=== PATIENT | male | born 1990 | race Caucasian/White ===

== ENCOUNTER 2021-03-15 15:56 | Inpatient (IN) | payer SELFPAY ==
[2021-03-15 16:08] VITALS: BP 138/84; PULSE 117; RESP 18; TEMP 36.7; O2SAT 97; BMI 25.3
[2021-03-15 17:15] LABS: Basophils # 0.1 10^3/uL (0.0-0.1); Basophils % 0.9 %; Eosinophils # 0.2 10^3/uL (0.0-0.8); Eosinophils % 1.6 %; Hematocrit 54.2 % (42.0-52.0); Hemoglobin 18.4 g/dL (11.7-16.6); Lymphocytes # 3.1 10^3/uL (0.8-4.8); Lymphocytes % 33.6 %; Mean Corpuscular HGB Conc 33.9 g/dL (30.0-36.0); Mean Corpuscular Volume 97.3 fL (80-94); Mean Platelet Volume 9.4 fL (7.4-10.4); Monocytes # 0.8 10^3/uL (0.2-0.9); Monocytes % 8.9 %; Neutrophils # 5.05 10^3/uL (1.8-7.7); Neutrophils % 54.9 %; Nucleated Red Blood Cells % 0 %; Platelet Count 257 10^3/cmm (130-400); Red Blood Count 5.57 10^6/uL (4.1-5.3); Red Cell Distribution Width 11.9 % (12.1-15.1); White Blood Count 9.2 10^3/uL (4.0-10.0)
[2021-03-15 17:41] LABS: Add Urine Microscopic? NO; Charge for UA Resulting for Rev
[2021-03-15 17:42] LABS: Alanine Aminotransferase 23 U/L (0-41); Albumin Level 4.9 g/dL (3.5-5.2); Alkaline Phosphatase 41 IU/L (40-130); Aspartate Amino Transferase 30 U/L (0-40); Blood Urea Nitrogen 7 mg/dL (6-20); Carbon Dioxide 22 mmol/L (22-29); Chloride 106 mmol/L (98-107); Creatine Phosphokinase 177 U/L (39-308); Creatinine Clr Calc Pharmacy 152.0806; Globulin 2.8 g/dL (1.3-4.6); Glomerular Filtration Rate 133.3 mL/min (90-130); Glucose 76 mg/dL (65-115); Osmolality Calculated 295 mOsm/kg (285-295); Sodium 144 mmol/L (136-145); Thyroid Stimulating Hormone 1.28 uIU/mL (0.27-4.20); Total Bilirubin 0.5 mg/dL (0.15-1.2); Total Protein 7.7 g/dL (6.6-8.7)
[2021-03-15 17:46] VITALS: BP 128/84; PULSE 117; RESP 18; O2SAT 96
[2021-03-15 17:46] LABS: Bilirubin Urine Neg (Negative); Blood Urine Neg (Negative); Glucose Urine UA Norm (Normal); Ketones Urine 1+ (Negative); Leukocyte Esterase Urine Negative (Negative); Nitrate Urine Negative (Negative); Protein Urine Neg (Negative); Specific Gravity, Urine 1.015 (1.005-1.030); Urine Appearance Clear (CLEAR); Urine Color Straw (Yellow); Urobilinogen Urine Norm (Negative); pH Urine 5 (5-7)
[2021-03-15 17:49] LABS: Acetaminophen < 5.0 ug/mL (10-30); Salicylate < 0.3 mg/dL (3-10)
[2021-03-15 17:50] LABS: Alcohol Level 304 mg/dL (0-10)
[2021-03-15 17:54] LABS: Amphetamines Screen Urine Negative (Negative); Barbiturates Screen Urine Negative (Negative); Benzodiazepines Screen Urine Negative (Negative); Cocaine Screen Urine Negative (Negative); Opiate Screen Urine Negative (Negative); PCP Screen Urine Negative (Negative); THC Screen Urine Positive (Negative)
--- NOTE | 2021-03-15 18:24 | PC.NURSE ---
patient denied any thoughts of harm self or others at this time. family at bedside.
--- NOTE | 2021-03-15 19:38 | W.ED.PSYCH ---
HPI - Psych General: Chief Complaint: Psychiatric Symptoms Stated Complaint: MONAE NOE Time Seen by Provider: 03/15/21 16:30 History of Present Illness: HPI Narrative: The patient is a 30-year-old male who comes to the ER complaining of depression and thoughts of hurting himself. He says he has no plan but he has thought about hurting himself. He has been on and off recently and right now he is thinking about it. He is reluctant to divulge information more than that. He admits to drinking alcohol but denies illicit substances. 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 His has left him and he is understandably depressed about it MD complaint: suicidal ideation and feels depressed History of same: Yes Context: recent alcohol abuse and significant life stressor Associated psychiatric symptoms: depression Associated symptoms: Reports depression and suicidal ideation; Deny homicidal ideation Review of Systems General: Reports: 10 or more systems reviewed and unremarkable except in HPI and below Const: Denies: fatigue Eyes: Denies: change in vision, blurry vision or eye redness ENMT: Denies: throat pain, swelling of lips/tongue, ear or mastoid pain or nasal congestion Card: Denies: chest pain, palpitations, irregular heart rhythm, edema, dyspnea on exertion or orthopnea Resp: Denies: dyspnea, productive cough or non-productive cough GI: Denies: abdominal pain, diarrhea or GI cramping : Denies: flank pain, urinary frequency or urinary urgency Musc: Denies: neck pain, back pain, extremity pain, joint pain, joint redness, limited range of motion or muscle weakness Skin/Breast: Denies: rash, pruritus, erythema, skin pain or skin tenderness Neuro: Denies: headache(s), numbness in extremities, weakness in extremities, sensory changes, difficulty walking, dizziness, confusion or Slurred speech present Psych: Reports: depression and suicidal ideation; Denies: homicidal ideation Endo: Denies: polyuria All/Imm: Denies: urticaria, throat swelling or tongue swelling Physical Exam Const: COMMON NORMALS: no acute distress, average body habitus, patient oriented x3, no limitations, healthy appearing, alert and well nourished GENERAL APPEARANCE: cooperative, comfortable, well kempt and well developed ORIENTATION/CONSCIOUSNESS: Yes awake, Yes oriented to person, Yes oriented to place and Yes oriented to time HENMT: COMMON NORMALS: normocephalic, external ears normal and Normal external nose present HEAD & SCALP: normal to inspection and normocephalic NOSE: Normal external nose present EXTERNAL EAR: Yes external ears normal MOUTH: Normal oral and palatal mucosa present THROAT: posterior oropharynx normal Eye: COMMON NORMALS: Equal, round and reactive pupils present and EOMs intact bilaterally GENERAL EYE: appearance normal, both eyes and all related structures PUPIL: Yes Equal, round and reactive pupils present Neck/C-Spine: COMMON NORMALS: full ROM, no lymphadenopathy, no meningeal signs and no JVD GENERAL: Yes normal visual inspection Lymph: LYMPHATIC: no lymphadenopathy noted Chest: COMMONS NORMALS: normal inspection of the chest and normal palpation of entire chest wall Resp: COMMON NORMALS: normal respiratory effort, No retractions, No use of accessory muscles, clear to auscultation bilaterally and percussion normal EFFORT & INSPECTION: Yes able to speak in complete sentences AUSCULTATION: clear to auscultation bilaterally PERCUSSION: percussion normal Cardio: COMMON NORMALS: no JVD, regular rate, regular rhythm, S1 normal heart sound present, S2 normal heart sound present and Peripheral pulses 2+ throughout RATE: regular rate RHYTHM: regular rhythm HEART SOUNDS: S1 normal heart sound present and S2 normal heart sound present PERIPHERAL PULSES: Peripheral pulses 2+ throughout GI: COMMON NORMALS: Normal to inspection, nondistended, normoactive bowel sounds present, Soft to palpation, non-tender and no masses INSPECTION: Yes normal to inspection PALPATION: Yes Soft to palpation : COMMON NORMALS: Yes no CVA tenderness BLADDER/KIDNEY EXAM: Yes no CVA tenderness Back/Pelvis: COMMON NORMALS: no CVA tenderness, thoracic and lumbar spine normal to inspection, no thoracic nor lumbar tenderness and thoraco-lumbar ROM normal Extremity: COMMON NORMALS: normal to inspection, full ROM, capillary refill normal, no joint enlargement and no pedal edema GENERAL: Yes normal exam except as noted Neuro: COMMON NORMALS: patient oriented x3, CN's II-XII intact bilaterally, moves all extremities, no focal motor deficits, no sensory deficits noted and gait normal SENSORIUM/ORIENTATION: Yes alert, Yes oriented to person, Yes oriented to place and Yes oriented to time MENINGEAL SIGNS: Yes no meningeal signs Psych: APPEARANCE: Yes well kempt ATTITUDE: Yes calm MOOD & AFFECT: Yes depressed mood THOUGHT CONTENT: Yes Suicidality present INSIGHT: Poor insight present (Psych) JUDGEMENT: Poor judgement present (Psych) Skin: COMMON NORMALS: no rashes or lesions noted GENERAL SKIN EXAM: no rashes or lesions noted Course Vital Signs: Vital signs: Vital Signs Temperature 98.1 F 03/15/21 16:08 Pulse Rate 117 H 03/15/21 17:46 Respiratory Rate 18 03/15/21 17:46 Blood Pressure 128/84 03/15/21 17:46 Pulse Oximetry 96 03/15/21 17:46 MDM - Psych MDM Narrative: Medical decision making narrative: The patient comes to the ER making suicidal remarks. He then asked to leave. He is intoxicated and made suicidal remarks to me. He will be admitted to Dr. Cuadra. I wrote a 96 involuntary hold paperwork. Lab Data: Labs: Lab Results 03/15/21 03/15/21 03/15/21 Range/Units 17:07 17:07 17:33 WBC 9.2 (4.0-10.0) 10^3/ uL RBC 5.57 H (4.1-5.3) 10^6/u L Hgb 18.4 H (11.7-16.6) g/dL Hct 54.2 H (42.0-52.0) % MCV 97.3 H (80-94) fL MCH 33.0 (28.0-34.0) pg MCHC 33.9 (30.0-36.0) g/dL RDW 11.9 L (12.1-15.1) % Plt Count 257 (130-400) 10^3/c mm MPV 9.4 (7.4-10.4) fL Neut % (Auto) 54.9 % Lymph % (Auto) 33.6 % Screven % (Auto) 8.9 % Eos % (Auto) 1.6 % Baso % (Auto) 0.9 % Neut # (Auto) 5.05 (1.8-7.7) 10^3/u L Lymph # (Auto) 3.1 (0.8-4.8) 10^3/u L Screven # (Auto) 0.8 (0.2-0.9) 10^3/u L Eos # (Auto) 0.2 (0.0-0.8) 10^3/u L Baso # (Auto) 0.1 (0.0-0.1) 10^3/u L Nucleated RBC % (a uto) 0 % Nucleated RBCs # 0.0 /100WBC Sodium 144 (136-145) mmol/L Potassium 4.0 (3.5-5.1) mmol/L Chloride 106 (98-107) mmol/L Carbon Dioxide 22 (22-29) mmol/L Anion Gap 20.0 H (5-19) BUN 7 (6-20) mg/dL Creatinine 0.7 (0.7-1.2) mg/dL GFR Calculation 133.3 H (90-130) mL/min Glucose 76 (65-115) mg/dL Calculated Osmolal ity 295 (285-295) mOsm/k g Calcium 9.0 (8.5-10.5) mg/dL Total Bilirubin 0.5 (0.15-1.2) mg/dL AST 30 (0-40) U/L ALT 23 (0-41) U/L Alkaline Phosphata se 41 (40-130) IU/L Creatine Kinase 177 (39-308) U/L Total Protein 7.7 (6.6-8.7) g/dL Albumin 4.9 (3.5-5.2) g/dL Globulin 2.8 (1.3-4.6) g/dL TSH 1.28 (0.27-4.20) uIU/ mL Urine Color Straw (Yellow) Urine Appearance Clear (CLEAR) Urine pH 5 (5-7) Ur Specific Gravit y 1.015 (1.005-1.030) Urine Protein Neg (Negative) Urine Glucose (UA) Norm (Normal) Urine Ketones 1+ H (Negative) Urine Blood Neg (Negative) Urine Nitrate Negative (Negative) Urine Bilirubin Neg (Negative) Urine Urobilinogen Norm (Negative) mg/dL Ur Leukocyte Soco ase Negative (Negative) Salicylates < 0.3 L (3-10) mg/dL Urine Opiates Scre en (Negative) ng/mL Acetaminophen < 5.0 L (10-30) ug/mL Ur Barbiturates Sc reen (Negative) ng/mL Ur Phencyclidine S crn (Negative) ng/mL Ur Amphetamines Sc reen (Negative) ng/mL U Benzodiazepines Scrn (Negative) ng/mL Urine Cocaine Scre en (Negative) ng/mL U Marijuana (THC) Screen (Negative) ng/mL Ethyl Alcohol 304 H* (0-10) mg/dL 03/15/21 Range/Units 17:33 WBC (4.0-10.0) 10^3/ uL RBC (4.1-5.3) 10^6/u L Hgb (11.7-16.6) g/dL Hct (42.0-52.0) % MCV (80-94) fL MCH (28.0-34.0) pg MCHC (30.0-36.0) g/dL RDW (12.1-15.1) % Plt Count (130-400) 10^3/c mm MPV (7.4-10.4) fL Neut % (Auto) % Lymph % (Auto) % Screven % (Auto) % Eos % (Auto) % Baso % (Auto) % Neut # (Auto) (1.8-7.7) 10^3/u L Lymph # (Auto) (0.8-4.8) 10^3/u L Screven # (Auto) (0.2-0.9) 10^3/u L Eos # (Auto) (0.0-0.8) 10^3/u L Baso # (Auto) (0.0-0.1) 10^3/u L Nucleated RBC % (a uto) % Nucleated RBCs # /100WBC Sodium (136-145) mmol/L Potassium (3.5-5.1) mmol/L Chloride (98-107) mmol/L Carbon Dioxide (22-29) mmol/L Anion Gap (5-19) BUN (6-20) mg/dL Creatinine (0.7-1.2) mg/dL GFR Calculation (90-130) mL/min Glucose (65-115) mg/dL Calculated Osmolal ity (285-295) mOsm/k g Calcium (8.5-10.5) mg/dL Total Bilirubin (0.15-1.2) mg/dL AST (0-40) U/L ALT (0-41) U/L Alkaline Phosphata se (40-130) IU/L Creatine Kinase (39-308) U/L Total Protein (6.6-8.7) g/dL Albumin (3.5-5.2) g/dL Globulin (1.3-4.6) g/dL TSH (0.27-4.20) uIU/ mL Urine Color (Yellow) Urine Appearance (CLEAR) Urine pH (5-7) Ur Specific Gravit y (1.005-1.030) Urine Protein (Negative) Urine Glucose (UA) (Normal) Urine Ketones (Negative) Urine Blood (Negative) Urine Nitrate (Negative) Urine Bilirubin (Negative) Urine Urobilinogen (Negative) mg/dL Ur Leukocyte Soco ase (Negative) Salicylates (3-10) mg/dL Urine Opiates Scre en Negative (Negative) ng/mL Acetaminophen (10-30) ug/mL Ur Barbiturates Sc reen Negative (Negative) ng/mL Ur Phencyclidine S crn Negative (Negative) ng/mL Ur Amphetamines Sc reen Negative (Negative) ng/mL U Benzodiazepines Scrn Negative (Negative) ng/mL Urine Cocaine Scre en Negative (Negative) ng/mL U Marijuana (THC) Screen Positive H (Negative) ng/mL Ethyl Alcohol (0-10) mg/dL Discharge Plan Discharge Patient Disposition: Admitted As Inpatient Admit Provider: Lester Cuadra Clinical Impression: Suicidal ideation Condition: Stable Coding Level of Care Code ED Day Light Relief Operator for Willard Grimaldo
[2021-03-15 22:09] LABS: Alcohol Level 180 mg/dL (0-10)
[2021-03-15 22:36] VITALS: BP 135/63; PULSE 120; RESP 20; TEMP 36.9; O2SAT 96
[2021-03-16 06:00] VITALS: BP 114/58; PULSE 107; RESP 16; TEMP 36.7; O2SAT 97
[2021-03-16] MEDS: timolol 0.25% Op Soln 5 mL Btl 1 DROP EYE-BOTH (09:37)
[2021-03-16] MEDS: folic acid 1 mg Tablet PO (09:39)
[2021-03-16] MEDS: thiamine 100 mg Tablet PO (09:39)
[2021-03-16] MEDS: multivitamin therapeutic Tablet 1 TAB PO (09:39)
[2021-03-16 14:00] VITALS: BP 118/67; PULSE 76; RESP 16; TEMP 36.7; O2SAT 97
--- NOTE | 2021-03-16 18:52 | P.HP_ITS ---
Providers/Chief Complaint Admitting Physician: Lester Cuadra MD Chief Complaint: MONAE NOE HPI NPU History of Present Illness Jamie Johnson is a 30 year old male who presented to the emergency department with the following report: Chief Complaint: Psychiatric Symptoms Stated Complaint: MONAE NOE Time Seen by Provider: 03/15/21 16:30 History of Present Illness: HPI Narrative: The patient is a 30-year-old male who comes to the ER complaining of depression and thoughts of hurting himself. He says he has no plan but he has thought about hurting himself. He has been on and off recently and right now he is thinking about it. He is reluctant to divulge information more than that. He admits to drinking alcohol but denies illicit substances. 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 His has left him and he is understandably depressed about it MD complaint: suicidal ideation and feels depressed History of same: Yes Context: recent alcohol abuse and significant life stressor Associated psychiatric symptoms: depression Associated symptoms: Reports depression and suicidal ideation; Deny homicidal ideation. He was admitted to the neuropsychiatric unit for definitive treatment of those issues. Jamie presents today reporting that he is aware that he drank too much but he has limited recollection of what exactly occurred. He denies ever having had psychiatric treatment or follow-up and denies ever having psychiatric inpatient services. He endorses some nicotine use, occasional alcohol use as well as marijuana use but denies any other illicit drugs. He denies rehab or DUIs. He endorses being gainfully employed and that he really needs to get back to work. 4 continued inpatient psychiatric services and permitted us to talk to his family who visited him recently. His family reports that he is back to being himself and I do believe that his overuse of alcohol yesterday led to the circumstance that we find ourselves in. He endorsed the ability to contract for safety outside the hospital and his mother reported that she would be with some for a couple of days just to make sure things are truly balanced out. We did discuss any need for medication. But he denied depression anxiety or any significant consistent psychiatric concerns. He did identify that recent relationship problem with his spouse has written some of this drinking behavior and he was open to referral to having someone to talk to about his concerns. Meds NPU Home Medications Medication Instructions Recorded Confirmed Last Taken Type timolol maleate 1 drp OPHTHALMIC (EYE) DAILY 03/15/21 03/15/21 03/15/21 History thiamine mononitrate (vit B1) 100 mg PO DAILY 30 Days #30 tab 03/16/21 Unknown Rx [Vitamin B-1 (mononitrate)] Allergies Allergy/AdvReac Type Severity Reaction Status Date / Time No Known Allergies Allergy Verified 03/15/21 16:14 Mental Status Exam MSE Comments: This is a well-nourished, well-developed white male with adequate dress, grooming and eye contact. No abnormal movements except for mild psychomotor retardation. Cooperative with exam in no acute distress. Speech was slightly decreased rate normal volume. Mood described as much better, af fect slightly subdued. Process organized. Thought content: Patient denied suicidal or homicidal ideation, there were no delusions reported noted, he denied any auditory visual hallucination. Attention and concentration were intact and memory appeared reliable except for the specific events but none were formally tested. He was alert and oriented x3. Insight and judgment are improving and impulse control is noted but improving. Vitals/I&O/Wt Last Vital Signs Temp 98.1 F 03/16/21 14:00 Pulse 76 03/16/21 14:00 Resp 16 03/16/21 14:00 BP 118/67 03/16/21 14:00 Pulse Ox 97 03/16/21 14:00 Weight last 48 hrs Weight 73.482 kg Data NPU : 03/15/21 17:07 03/15/21 17:07 A&P Assessment and plan (1) Suicidal ideation: Status: Resolved (2) Alcohol use: Status: Acute (3) Partner relational problem: Status: Acute (4) Adjustment disorder with mixed disturbance of emotions and conduct: Status: Acute Additional A&P Information This is a 30-year-old white male with a history of partner relational problem and increased substance use likely in response to that who presented to the emergency department after significant alcohol intoxication led to behaviors that raise concerns with his family. He presents reporting that now that he sobered he feels better and is not interested in any inpatient services. 1. Continue current medication. 2. Continue every 15 minute checks for safety. 3. Encourage individual, group and milieu therapies. 4. Encourage sober living treatment after discharge at the highest level of care to which he is willing to commit. He is during discharge and reports he will follow-up with outpatient resources given his recent increased substance use. Involuntary Hold Information 96 Hour Hold: 96 Hour Involuntary Admission: No Attestations NPU Medical Necessity Statement*: Inpatient hospitalization is no longer medically necessary or the clinically appropriate event that is time. There were significant concerns for lethality but after discussing the situation with him and collateral sources he is able to contract for safety and will be discharged with appropriate follow-up. Coding Level of Care Code Acute Operating Room Registered Nurse for [facility] Fwd Diagnoses Suicidal ideation R45.851 Alcohol use Z72.89 Partner relational problem Z63.0 Adjustment disorder with mixed disturbance of emotions and conduct F43.25
--- NOTE | 2021-03-16 18:54 | PM.NDC ---
Diagnoses at Discharge Discharge Diagnosis (1) Suicidal ideation: Status: Resolved (2) Alcohol use: Status: Acute (3) Partner relational problem: Status: Acute (4) Adjustment disorder with mixed disturbance of emotions and conduct: Status: Acute Reason for Visit Reason for Visit: MONAE NOE Brief History: History of Present Illness Jamie Johnson is a 30 year old male who presented to the emergency department with the following report: Chief Complaint: Psychiatric Symptoms Stated Complaint: MONAE EVVIVIAN Time Seen by Provider: 03/15/21 16:30 History of Present Illness: HPI Narrative: The patient is a 30-year-old male who comes to the ER complaining of depression and thoughts of hurting himself. He says he has no plan but he has thought about hurting himself. He has been on and off recently and right now he is thinking about it. He is reluctant to divulge information more than that. He admits to drinking alcohol but denies illicit substances. 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 His has left him and he is understandably depressed about it MD complaint: suicidal ideation and feels depressed History of same: Yes Context: recent alcohol abuse and significant life stressor Associated psychiatric symptoms: depression Associated symptoms: Reports depression and suicidal ideation; Deny homicidal ideation. He was admitted to the neuropsychiatric unit for definitive treatment of those issues. Jamie presents today reporting that he is aware that he drank too much but he has limited recollection of what exactly occurred. He denies ever having had psychiatric treatment or follow-up and denies ever having psychiatric inpatient services. He endorses some nicotine use, occasional alcohol use as well as marijuana use but denies any other illicit drugs. He denies rehab or DUIs. He endorses being gainfully employed and that he really needs to get back to work. 4 continued inpatient psychiatric services and permitted us to talk to his family who visited him recently. His family reports that he is back to being himself and I do believe that his overuse of alcohol yesterday led to the circumstance that we find ourselves in. He endorsed the ability to contract for safety outside the hospital and his mother reported that she would be with some for a couple of days just to make sure things are truly balanced out. We did discuss any need for medication. But he denied depression anxiety or any significant consistent psychiatric concerns. He did identify that recent relationship problem with his spouse has written some of this drinking behavior and he was open to referral to having someone to talk to about his concerns. Hospital Course Hospital Course Jamie presented to the emergency department intoxicated endorsing depression with concerns for lethality was recent difficulty with his marriage. He was admitted to the neuropsychiatric unit for definitive treatment of those issues. On the unit he quickly acclimated to the individual, group and milieu therapies provided. He is not interested in inpatient services but he wanted to talk to someone and get some help. He identified increased drinking behavior but most of it was related to his leaving him recently. We were able to elaborate his report of his circumstances with his mother and sister who felt very safe about him discharging with a plan to get back to work in a couple days. We did not start any medications and he did show modest improvement with sobriety and was able to contract for safety outside of the hospital. During the hospitalization, patient had routine laboratory studies which were within normal limits except for few outliers. Additionally there was a general medical evaluation which was also within normal limits and revealed no new acute processes. Discharge Summary: At the time of discharge, he denied psychosis or lethality. Mood and anxiety were well managed. Patient endorsed a plan to avoid all drugs of abuse and follow-up with the aftercare recommendations of the treatment team. Patient was evaluated and deemed to be absent credible lethality, and had achieved the maximum benefit from an inpatient hospitalization, so was discharged. Involuntary Hold Information 96 Hour Hold: 96 Hour Involuntary Admission: No Mental Status Exam MSE Comments: This is a well-nourished, well-developed white male with adequate dress, grooming and eye contact. No abnormal movements except for mild psychomotor retardation. Cooperative with exam in no acute distress. Speech was slightly decreased rate normal volume. Mood described as much better, affect slightly subdued. Process organized. Thought content: Patient denied suicidal or homicidal ideation, there were no delusions reported noted, he denied any auditory visual hallucination. Attention and concentration were intact and memory appeared reliable except for the specific events but none were formally tested. He was alert and oriented x3. Insight and judgment are improving and impulse control is noted but improving. Discharge Data Data Completed and Pending: Labs from last 24 hours 03/15/21 21:42 Ethyl Alcohol 180 H Vitals: Last Vital Signs Temp 98.1 F 03/16/21 14:00 Pulse 76 03/16/21 14:00 Resp 16 03/16/21 14:00 BP 118/67 03/16/21 14:00 Pulse Ox 97 03/16/21 14:00 Discharge Plan Discharge Patient Disposition: Home Condition: Stable Prescriptions: New Vitamin B-1 (mononitrate) 100 mg Tablet 100 mg PO DAILY 30 Days Qty: 30 RF: 1 Continued timolol maleate 0.25 % drops 1 drp ophthalmic (eye) DAILY RF: 0 Discharge Orders: Discharge Order (Routine); Ordered 03/16/21 Ordered By: Lester Cuadra Referrals: [facility] [Outside] (Address: [address] [place] [id number] ) Discharge Diet: Regular Discharge Activity: Resume usual activity Patient Instructions: Opioid Safety Discharge Attestations NPU Time Spent in Discharge Care*: greater than 30 min Specific Discharge Activities: Specific discharge activities: educating patient, discussing with caseworker protective services/social workers/dc planners, documenting/other paperwork and evaluating patient/reviewing data Coding Level of Care Code Acute Chg FW DC note Diagnoses Suicidal ideation R45.851 Alcohol use Z72.89 Partner relational problem Z63.0 Adjustment disorder with mixed disturbance of emotions and conduct F43.25
[2021-03-16 18:56] VITALS: BP 118/67; PULSE 76; RESP 16; TEMP 36.7; O2SAT 97
[2021-03-16 19:10] VITALS: BP 118/67; PULSE 76; RESP 16; TEMP 36.7; O2SAT 97
== END 2021-03-16 19:14 | disposition home or self-care (01) | DRG 882 ==
LOC: ER 16:33 → NP 19:46
PROVIDERS: Admitting Provider Psychiatry & Neurology Psychiatry; Emergency Provider Family Medicine; Visit Provider Psychiatry & Neurology Psychiatry
DX: F43.25 Adjustment disorder with mixed disturbance of emotions and conduct (principal); R45.851 Suicidal ideations; F32.9 Major depressive disorder, single episode, unspecified; Z72.89 Other problems related to lifestyle; Z63.0 Problems in relationship with spouse or partner; Z72.0 Tobacco use
CPT/HCPCS: 80053; 80306; 80307; 81003; 82550; 84443; 85025; 99285